=== PATIENT | male | born 1955 | race Caucasian/White ===

== ENCOUNTER 2020-11-28 09:17 | Emergency (ER) | payer MEDICARE, OTHER ==
[2020-11-28 10:20] LABS: #Basophils 0.1 thou/uL (0.0-0.2); #Lymphocytes 0.6 thou/uL (1.20-3.40); #Monocytes 0.6 thou/uL (0.11-0.59); #Neutrophils 10.7 thou/uL (1.40-6.50); %Basophils 0.6 % (0.0-1.0); %Lymphocytes 5.2 % (21.0-51.0); %Monocytes 4.6 % (0.0-10.0); %Neutrophils 89.5 % (42.0-75.0); Hemoglobin 16.3 g/dL (14.0-18.0); Mean Corpuscular HGB CONC 34.6 g/dL (32.0-36.0); Mean Corpuscular Volume 86.7 fL (78.0-98.0); Mean Platelet Volume 7.3 fL (7.4-10.4); Platelet Count 202 thou/uL (130-400); RBC Distribution Width 11.3 % (11.5-14.5); Red Blood Cell (RBC) Count 5.45 mill/uL (4.70-6.10)
[2020-11-28 10:34] LABS: ALT (SGPT) 26 U/L (8-55); AST (SGOT) 37 U/L (5-34); Albumin 3.5 g/dL (3.4-4.8); Alkaline Phosphatase 77 U/L (40-110); Anion Gap 16 mmol/L (10-20); BUN (Urea Nitrogen) 16 mg/dL (8.4-25.7); Bilirubin, Total 1.6 mg/dL (0.2-1.2); Calc. Creatinine Clearance 0 mL/min (70-130); Carbon Dioxide 24 mmol/L (23-31); Chloride 87 mmol/L (98-107); Globulin 3.1 g/dL (2.4-3.5); Glucose 121 mg/dL (80-115); Magnesium 1.9 mg/dL (1.6-2.6); Potassium 3.9 mmol/L (3.5-5.1); Protein, Total 6.6 g/dL (5.8-8.1); Sodium 123 mmol/L (136-145)
[2020-11-28 12:37] LABS: SARS-CoV-2 NAA Rapid Test DETECTED (NotDetected)
[2020-11-28 16:01] LABS: Anion Gap 15 mmol/L (10-20); BUN (Urea Nitrogen) 14 mg/dL (8.4-25.7); Calc. Creatinine Clearance 0 mL/min (70-130); Calcium 8.4 mg/dL (7.8-10.44); Carbon Dioxide 22 mmol/L (23-31); Chloride 91 mmol/L (98-107); Glucose 145 mg/dL (80-115); Potassium 3.7 mmol/L (3.5-5.1); Sodium 124 mmol/L (136-145)
[2020-11-28 16:16] LABS: Base Excess-Venous 0.3 mmol/L (-2.0 to 3.0); Bicarbonate (HCO3v) 24.6 mmol/L (22.0-28.0); CO2 Tension (PvCO2) 38.1 mmHg (42.0-51.0); Calcium, Ionized 1.01 mmol/L (1.15-1.33); Chloride 91 mmol/L (98-107); Hemoglobin - Calc 17.7 g/dL (14.0-18.0); Potassium 4.8 mmol/L (3.5-5.1); Sodium 123 mmol/L (138-145); T. Carbon Dioxide 25.8 mmol/L (22.0-28.0); vO2 Saturation-calc 96.9 % (60.0-85.0)
== END 2020-11-28 16:49 | disposition short-term general hospital (02) ==
LOC: MADERS 09:17
DX: U07.1 COVID-19 (principal); J96.00 Acute respiratory failure, unspecified whether with hypoxia or hypercapnia; E87.1 Hypo-osmolality and hyponatremia; I10 Essential (primary) hypertension; Z79.899 Other long term (current) drug therapy
CPT/HCPCS: 71045; 80048; 80053; 82330; 82435; 82803; 83735; 83880; 83930; 84132; 84295; 84484; 85014; 85025; 93005; U0002; 36415